=== PATIENT | male | born 1965 | race Two or more races ===

== ENCOUNTER 2018-01-07 15:11 | Day surgery (SDC) | payer OTHER ==
[~2018-01-07 15:11] MED LIST: ALBU90OI INH; BISA5EC PO; BUPR100ER; BUSP10; CLIN300 PO; CYCL10 PO; Cipro250 MG PO; Colace100 MG PO; DOCU100 PO; DOXY100T53 PO; DULO30 PO; ESCI10; Flomax0.4 MG PO; Flonase 0.05% N16 GM; GABA300 PO; GUAI120S1 PO; HYDACE10B; HYDACE10B PO; HYDHOMSY PO; HYDR1TAB94 PO; IBUP400; IBUP400 PO; IBUP800 PO; LANS30EC PO; LEVFLO500 PO; MELO7.5 PO; METH10; METPRE4DP PO; Norco 7.5-3251 EACH PO; OMEP20ER PO; OXYACE5T PO; Percocet 5-3251 EACH PO; Prilosec Otc20 MG; RANI150 PO; RXOXYACE PO; SACC250C PO; SENN187 PO; SOMA250 MG; SOMA250 MG PO; SOMA350 MG GT; Sudogest30 MG PO; TRAM50 PO; TRAZ100 PO; Ultram50 MG PO; VICODIN ES 7.51 EACH PO; Zithromax250 MG PO; Zofran Odt4 MG SL; [UNRECOGNIZED DRUG - OTHER] PO
== END 2018-01-07 23:00 | disposition home or self-care (01) ==
LOC: RAD 15:11 → US 15:30 → RAD 15:30 → US 02-04 10:00
PROC: 0R9J3ZX Drainage of Right Shoulder Joint, Percutaneous Approach, Diagnostic (ICD-10-PCS; principal; 2018-01-07)
DX: S46.001A Unspecified injury of muscle(s) and tendon(s) of the rotator cuff of right shoulder, initial encounter (principal); M25.511 Pain in right shoulder
CPT/HCPCS: 20610; 77002; A9577; Q9967

== ENCOUNTER 2018-08-25 17:14 | Emergency (ER) | payer OTHER ==
[~2018-08-25] VITALS: Ht 170.2 cm; Wt 83.9 kg
[2018-08-25] MEDS ORDERED: KETO10 PO (18:56)
== END 2018-08-25 19:09 | disposition home or self-care (01) ==
LOC: ER 17:14
DX: G89.29 Other chronic pain (principal); M54.5 Low back pain; Z88.2 Allergy status to sulfonamides; Z88.0 Allergy status to penicillin; Z88.8 Allergy status to other drugs, medicaments and biological substances
CPT/HCPCS: 96372; 99283-25; J1885

== ENCOUNTER 2018-11-25 11:01 | Emergency (ER) | payer OTHER ==
[~2018-11-25] VITALS: Ht 170.2 cm; Wt 77.1 kg
[~2018-11-25 11:01] MED LIST changes: +KETO10 PO
[2018-11-25] MEDS ORDERED: KETO10 PO (12:08)
[2018-11-25] MEDS ORDERED: Norco 5-325 Ta1 EACH PO (12:08)
[2018-11-25] MEDS ORDERED: Voltaren100 GM TOP (12:08)
== END 2018-11-25 12:38 | disposition home or self-care (01) ==
LOC: ER 11:01
DX: G89.29 Other chronic pain (principal); M54.5 Low back pain; Z88.0 Allergy status to penicillin; Z88.1 Allergy status to other antibiotic agents; Z88.2 Allergy status to sulfonamides; Z91.048 Other nonmedicinal substance allergy status; Z88.8 Allergy status to other drugs, medicaments and biological substances; Z91.041 Radiographic dye allergy status; Z79.899 Other long term (current) drug therapy
CPT/HCPCS: 96372; 99283-25; J1885

== ENCOUNTER 2018-12-13 12:09 | Emergency (ER) | payer OTHER ==
[~2018-12-13] VITALS: Ht 170.2 cm; Wt 77.1 kg
[~2018-12-13 12:09] MED LIST changes: +Norco 5-325 Ta1 EACH PO; +Voltaren100 GM TOP
[2018-12-13] MEDS ORDERED: Norco 5-325 Ta1 EACH PO (12:35)
[2018-12-13] MEDS ORDERED: Voltaren100 GM TOP (12:35)
[2018-12-13] MEDS ORDERED: METCAR500 PO (12:35)
== END 2018-12-13 12:54 | disposition home or self-care (01) ==
LOC: ER 12:09
DX: G89.29 Other chronic pain (principal); M54.5 Low back pain; Z88.0 Allergy status to penicillin; Z88.2 Allergy status to sulfonamides; Z88.5 Allergy status to narcotic agent; Z91.041 Radiographic dye allergy status; Z79.899 Other long term (current) drug therapy
CPT/HCPCS: 96372; 99283-25; A9270-GY; J1885

== ENCOUNTER 2019-02-07 11:33 | Emergency (ER) | payer OTHER ==
[~2019-02-07] VITALS: Ht 170.2 cm; Wt 76.2 kg
[~2019-02-07 11:33] MED LIST changes: +METCAR500 PO
[2019-02-07] MEDS ORDERED: Norco 7.5-3251 EACH PO (12:31)
== END 2019-02-07 12:43 | disposition home or self-care (01) ==
LOC: ER 11:33
DX: G89.29 Other chronic pain (principal); M54.5 Low back pain; Z88.8 Allergy status to other drugs, medicaments and biological substances; Z88.1 Allergy status to other antibiotic agents; Z88.0 Allergy status to penicillin; Z88.2 Allergy status to sulfonamides; Z91.041 Radiographic dye allergy status; Z79.899 Other long term (current) drug therapy
CPT/HCPCS: 99283

== ENCOUNTER 2019-02-09 10:19 | Emergency (ER) | payer OTHER ==
[~2019-02-09] VITALS: Ht 170.2 cm; Wt 77.1 kg
[2019-02-09] MEDS ORDERED: Norco 5-325 Ta1 EACH PO (11:06)
== END 2019-02-09 11:28 | disposition home or self-care (01) ==
LOC: ER 10:19
DX: M62.830 Muscle spasm of back (principal); G89.29 Other chronic pain; Z88.1 Allergy status to other antibiotic agents; Z88.8 Allergy status to other drugs, medicaments and biological substances; Z88.0 Allergy status to penicillin; Z88.2 Allergy status to sulfonamides; Z91.048 Other nonmedicinal substance allergy status; Z91.041 Radiographic dye allergy status; Z79.899 Other long term (current) drug therapy
CPT/HCPCS: 20552; 99283-25

== ENCOUNTER 2019-03-09 13:22 | Emergency (ER) | payer OTHER ==
[~2019-03-09] VITALS: Ht 170.2 cm; Wt 77.1 kg
[2019-03-09] MEDS ORDERED: METPRE4DP PO (14:55)
[2019-03-09] MEDS ORDERED: Norco 5-325 Ta1 EACH PO (14:55)
== END 2019-03-09 15:02 | disposition home or self-care (01) ==
LOC: ER 13:22
DX: G89.29 Other chronic pain (principal); M54.5 Low back pain; Z88.1 Allergy status to other antibiotic agents; Z88.0 Allergy status to penicillin; Z88.2 Allergy status to sulfonamides; Z91.048 Other nonmedicinal substance allergy status; Z91.041 Radiographic dye allergy status; Z79.899 Other long term (current) drug therapy
CPT/HCPCS: 96372; 99283; J1885

== ENCOUNTER 2019-07-31 15:05 | Emergency (ER) | payer OTHER ==
[~2019-07-31] VITALS: Ht 170.2 cm; Wt 79.4 kg
[2019-07-31] MEDS ORDERED: Norco 5-325 Ta1 EACH PO (15:39)
[2019-07-31] MEDS ORDERED: BACL10 PO (15:40)
[2019-07-31] MEDS ORDERED: TIZA4 (15:41)
== END 2019-07-31 15:50 | disposition home or self-care (01) ==
LOC: ER 15:05
DX: M54.5 Low back pain (principal); G89.29 Other chronic pain; Z79.899 Other long term (current) drug therapy
CPT/HCPCS: 99283; A9270-GY

== ENCOUNTER 2019-11-06 15:12 | Emergency (ER) | payer OTHER ==
[~2019-11-06] VITALS: Ht 172.7 cm; Wt 86.2 kg
[~2019-11-06 15:12] MED LIST changes: +BACL10 PO; +TIZA4
== END 2019-11-06 16:19 | disposition home or self-care (01) ==
LOC: ER 15:12
DX: S05.12XA Contusion of eyeball and orbital tissues, left eye, initial encounter (principal); W55.03XA Scratched by cat, initial encounter
CPT/HCPCS: 99283

== ENCOUNTER 2020-10-06 14:05 | Emergency (ER) | payer OTHER ==
[~2020-10-06] VITALS: Ht 170.2 cm; Wt 90.7 kg
[2020-10-06] MEDS ORDERED: IBUP600 PO (14:48)
[2020-10-06] MEDS ORDERED: CYCL10 PO (14:48)
== END 2020-10-06 14:57 | disposition home or self-care (01) ==
LOC: ER 14:05
DX: M76.32 Iliotibial band syndrome, left leg (principal); Z79.899 Other long term (current) drug therapy; Z88.1 Allergy status to other antibiotic agents; Z88.8 Allergy status to other drugs, medicaments and biological substances; Z88.0 Allergy status to penicillin; Z88.2 Allergy status to sulfonamides; Z91.09 Other allergy status, other than to drugs and biological substances; Z91.041 Radiographic dye allergy status
CPT/HCPCS: 99283

== ENCOUNTER 2021-02-26 14:22 | Emergency (ER) | payer OTHER ==
[~2021-02-26] VITALS: Ht 170.2 cm; Wt 91.6 kg
[~2021-02-26 14:22] MED LIST changes: +IBUP600 PO
== END 2021-02-26 16:36 | disposition home or self-care (01) ==
LOC: ER 14:22
DX: M79.671 Pain in right foot (principal); Z88.1 Allergy status to other antibiotic agents; Z88.0 Allergy status to penicillin; Z88.2 Allergy status to sulfonamides; Z91.09 Other allergy status, other than to drugs and biological substances; Z91.041 Radiographic dye allergy status; Z79.899 Other long term (current) drug therapy
CPT/HCPCS: 73630; 99283-25

== ENCOUNTER 2021-05-10 12:46 | Emergency (ER) | payer OTHER ==
[~2021-05-10] VITALS: Ht 172.7 cm; Wt 90.7 kg
[2021-05-10] MEDS ORDERED: CYCL10 PO (13:50)
== END 2021-05-10 13:55 | disposition home or self-care (01) ==
LOC: ER 12:46
DX: M54.5 Low back pain (principal); G89.29 Other chronic pain; Z88.1 Allergy status to other antibiotic agents; Z88.0 Allergy status to penicillin; Z88.2 Allergy status to sulfonamides; Z91.048 Other nonmedicinal substance allergy status; Z88.8 Allergy status to other drugs, medicaments and biological substances; Z91.041 Radiographic dye allergy status
CPT/HCPCS: 96372; 99283-25; J1885

== ENCOUNTER 2021-10-05 13:41 | Emergency (ER) | payer OTHER ==
[~2021-10-05] VITALS: Ht 172.7 cm; Wt 89.8 kg
[2021-10-05] MEDS ORDERED: CLIN300 PO (14:13)
== END 2021-10-05 14:11 | disposition home or self-care (01) ==
LOC: ER 13:41
DX: K03.81 Cracked tooth (principal); Z88.0 Allergy status to penicillin; Z88.2 Allergy status to sulfonamides; Z91.048 Other nonmedicinal substance allergy status; Z88.1 Allergy status to other antibiotic agents; Z91.041 Radiographic dye allergy status; Z79.899 Other long term (current) drug therapy
CPT/HCPCS: 99282